=== PATIENT | female | born 1990 | race American Indian/Alaskan Native ===

== ENCOUNTER 2017-10-25 20:11 | Inpatient (IN) | payer MEDICAID, OTHER ==
[2017-10-25] MEDS ORDERED: LACTATED RINGERS 1,000 ML IV SCH (23:00)
[2017-10-25] MEDS: CYTOTEC VG SCH (23:12)
[2017-10-25 23:39] LABS: Hematocrit 34.1 % (30.3-42.9); Hemoglobin 11.6 gm/dl (10.1-14.3); Mean Corpuscular HGB Conc 34 % (30-34); Mean Corpuscular Hemoglobin 31 pg (28-32); Mean Corpuscular Volume 89 fl (79-97); Platelet Count 243 K/mm3 (140-440); Red Blood Count 3.82 M/mm3 (3.65-5.03); White Blood Count 8.6 K/mm3 (4.5-11.0)
[2017-10-26] MEDS: CYTOTEC VG SCH (03:00)
[2017-10-26] MEDS ORDERED: PHENERGAN PO PRN (06:10)
[2017-10-26] MEDS ORDERED: NARCAN 0.4 MG/1 ML IV PRN (06:10)
[2017-10-26] MEDS ORDERED: XYLOCAINE 2% INFILTRATI ONE (06:10)
[2017-10-26] MEDS ORDERED: BRETHINE IVP PRN (06:10)
[2017-10-26] MEDS ORDERED: BRETHINE SUB-Q PRN (06:10)
[2017-10-26] MEDS ORDERED: ePHEDrine SULFATE IV PRN (06:10)
[2017-10-26] MEDS ORDERED: MINERAL OIL PO PRN (06:10)
--- NOTE | 2017-10-26 06:19 | History and Physical Report ---
History of Present Illness Date of examination: 10/26/17 Date of admission: 10/25/17 20:11 Chief complaint: induction of labor History of present illness: This is a 26 yo at 41 weeks admitted to labor and delivery for induction for post due dates. She is a patient of [facility] since 29 weeks transfer in. She is sickle cell trait Positive. EDC 10/14/17. Past History Past Medical History: no pertinent history Past Surgical History: no surgical history Social history: no significant social history, . denies: smoking, alcohol abuse, prescription drug abuse - Obstetrical History Expected Date of Delivery: 10/14/17 Actual Gestation: 41 Week(s) 5 Day(s) : 1 Para: 0 Hx # Term Pregnancies: 0 Number of Pregnancies: 0 Spontaneous Abortions: 0 Induced : 0 Number of Living Children: 0 Medications and Allergies Allergies Allergy/AdvReac Type Severity Reaction Status Date / Time No Known Allergies Allergy Verified 10/25/17 22:30 Active Meds: Active Medications Butorphanol Tartrate (Stadol) 2 mg IV Q2H PRN PRN Reason: Labor Pain Fentanyl (Sublimaze) 100 mcg IV Q2H PRN PRN Reason: Pain Lactated Ringer's (Lactated Ringers) 1,000 mls @ 125 mls/hr IV DIRECT [facility] Last Admin: 10/25/17 23:12 Dose: 125 mls/hr Misoprostol (Cytotec) 25 mcg VG Q4H [facility] Last Admin: 10/26/17 03:00 Dose: 25 mcg Review of Systems All systems: negative - Vital Signs Vital signs: Vital Signs Pulse BP 81 111/66 10/25/17 21:00 10/25/17 21:00 Temp Pulse Resp BP Pulse Ox 98.8 F 60 124/66 10/26/17 01:21 10/26/17 02:29 10/26/17 02:29 - Physical Exam Breasts: Positive: normal Cardiovascular: Regular rate, Normal S1 Lungs: Positive: Clear to auscultation, Normal air movement Abdomen: Positive: normal appearance, soft, normal bowel sounds. Negative: distention, tenderness Genitourinary (Female): Positive: normal external genitalia, normal perenium Vulva: both: normal Vagina: Positive: normal moisture Uterus: Positive: normal size, normal contour Extremities: Positive: normal Deep Tendon Reflex Grade: Normal +2 - Obstetrical FHR: category 1 Cervical Dilatation: 0.5 Uterine Contraction Pattern: Irregular Uterine Contraction Intensity: Mild Results Result Diagrams: 10/25/17 21:40 All other labs normal. Assessment and Plan A/P HD#2 for IOL at post dates at 41+5 weeks admitted with cytotec for cervical ripening labs initiated and IVF reviewed records expect vaginal delivery
[2017-10-26] MEDS: LACTATED RINGERS 1,000 ML IV SCH (06:41)
[2017-10-26] MEDS ORDERED: PITOCin/NS 30 UNIT/500ML 30 UNITS/500 ML BAG IV SCH (07:00)
[2017-10-26] MEDS ORDERED: PITOCin/NS 20 UNIT/1000ML DRIP 20 UNITS/1,000 ML BAG IV SCH (07:00)
--- NOTE | 2017-10-26 07:54 | Progress Note ---
Assessment and Plan A: IUP at 41+ weeks gestation Induction of labor P: Received 2 doses of Cytotec since admit AM care Cytotec 50mcg PV @ 0900 every 4 hrs Subjective - Subjective Date of service: 10/26/17 Patient reports: movement normal, contractions, no new complaints, no loss of fluid, no vaginal bleeding Objective - Vital Signs Vital Signs: Vital Signs - 12hr 10/25/17 10/25/17 10/26/17 21:00 21:01 01:21 Temperature 98.8 F Pulse Rate 81 81 Blood Pressure 111/66 Blood Pressure 111/66 [Left] 10/26/17 02:29 Temperature Pulse Rate 60 Blood Pressure 124/66 Blood Pressure [Left] - Exam Breasts: deferred Abdomen: Present: normal appearance FHR: category 1 Uterine Contraction Monitor Mode: External Uterine Contraction Pattern: Irregular Uterine Tone Measurement Phase: Resting - Labs Labs: Laboratory Results - last 24 hr 10/25/17 10/25/17 21:40 21:40 WBC 8.6 RBC 3.82 Hgb 11.6 Hct 34.1 MCV 89 MCH 31 MCHC 34 RDW 15.0 Plt Count 243 Blood Type B POSITIVE Antibody Screen Negative
[2017-10-26] MEDS ORDERED: CYTOTEC VG SCH (09:00)
[2017-10-26] MEDS: STADOL IV PRN ×2 (16:16→22:00)
[2017-10-26] MEDS: PITOCin/NS 30 UNIT/500ML 30 UNITS/500 ML BAG IV SCH ×2 (19:25→20:30)
[2017-10-26] MEDS: SUBLIMAZE IV PRN (19:26)
[2017-10-27] MEDS: SUBLIMAZE IV PRN ×2 (00:30→05:20)
[2017-10-27] MEDS: LACTATED RINGERS 1,000 ML IV SCH ×3 (01:57→08:44)
[2017-10-27] MEDS: STADOL IV PRN (02:34)
[2017-10-27] MEDS ORDERED: PITOCin/NS 30 UNIT/500ML 30 UNITS/500 ML BAG IV SCH (05:39)
[2017-10-27] MEDS ORDERED: NARCAN 2 MG/2 ML IV PRN (08:48)
[2017-10-27] MEDS ORDERED: ePHEDrine SULFATE IV PRN (08:48)
--- NOTE | 2017-10-27 08:48 | Anesthesia Consultation ---
Anesthesia Consult and Med Hx Date of service: 10/27/17 - Airway Anesthetic Teeth Evaluation: Good ROM Head & Neck: Adequate Mental/Hyoid Distance: Adequate Mallampati Class: Class II Intubation Access Assessment: Probably Good - Pre-Operative Health Status ASA Pre-Surgery Classification: ASA2 Proposed Anesthetic Plan: Epidural, Spinal - Pulmonary Hx Asthma: No COPD: No Hx Pneumonia: No - Cardiovascular System Hx Hypertension: No - Central Nervous System Hx Seizures: No Hx Psychiatric Problems: No - Endocrine Hx Renal Disease: No Hx End Stage Renal Disease: No Hx Hypothyroidism: No Hx Hyperthyroidism: No - Hematic Hx Anemia: No Hx Sickle Cell Disease: No (Hx of Trait) - Other Systems Hx Alcohol Use: No
[2017-10-27] MEDS ORDERED: fentaNYL-BUPIV 2 MCG/ML-0.125% 200 MCG/100 ML BAG EPIDURAL SCH (09:00)
--- NOTE | 2017-10-27 09:01 | Progress Note ---
Assessment and Plan A: IUP at 41+ weeks Active Labor Prolonged Rupture of Membranes P: IUPC placed Close observation of tracing Antibiotics as ordered Subjective - Subjective Date of service: 10/27/17 Patient reports: new complaints (Pain with contractions), movement normal , contractions, no loss of fluid, no vaginal bleeding Objective - Vital Signs Vital Signs: Vital Signs - 12hr 10/27/17 10/27/17 10/27/17 00:34 00:38 00:41 Temperature 98.5 F Pulse Rate 51 L 51 L 57 L Respiratory 18 Rate Blood Pressure 127/73 Blood Pressure 126/73 [Left] O2 Sat by Pulse 98 Oximetry 10/27/17 10/27/17 10/27/17 00:46 00:51 00:56 Temperature Pulse Rate 52 L 54 L 53 L Respiratory Rate Blood Pressure Blood Pressure [Left] O2 Sat by Pulse 98 96 96 Oximetry 10/27/17 10/27/17 10/27/17 01:01 01:06 01:11 Temperature Pulse Rate 53 L 59 L 50 L Respiratory Rate Blood Pressure Blood Pressure [Left] O2 Sat by Pulse 96 96 97 Oximetry 10/27/17 10/27/17 10/27/17 01:16 01:21 01:26 Temperature Pulse Rate 51 L 50 L 48 L Respiratory Rate Blood Pressure Blood Pressure [Left] O2 Sat by Pulse 97 97 98 Oximetry 10/27/17 10/27/17 10/27/17 01:31 01:36 01:41 Temperature Pulse Rate 49 L 53 L 50 L Respiratory Rate Blood Pressure Blood Pressure [Left] O2 Sat by Pulse 99 98 99 Oximetry 10/27/17 10/27/17 10/27/17 01:46 01:50 01:58 Temperature Pulse Rate 50 L 78 Respiratory Rate Blood Pressure Blood Pressure [Left] O2 Sat by Pulse 98 93 86 Oximetry 10/27/17 10/27/17 10/27/17 02:01 02:06 02:11 Temperature Pulse Rate 51 L 54 L 49 L Respiratory Rate Blood Pressure Blood Pressure [Left] O2 Sat by Pulse 100 98 98 Oximetry 10/27/17 10/27/17 10/27/17 02:16 02:23 02:34 Temperature Pulse Rate 50 L Respiratory Rate Blood Pressure Blood Pressure [Left] O2 Sat by Pulse 97 75 L 91 Oximetry 10/27/17 10/27/17 10/27/17 02:38 02:40 02:45 Temperature 98.3 F Pulse Rate 52 L 54 L Respiratory Rate Blood Pressure Blood Pressure [Left] O2 Sat by Pulse 98 97 Oximetry 10/27/17 10/27/17 10/27/17 02:50 02:55 03:00 Temperature Pulse Rate 50 L 55 L 52 L Respiratory Rate Blood Pressure Blood Pressure [Left] O2 Sat by Pulse 96 94 95 Oximetry 10/27/17 10/27/17 10/27/17 03:05 03:10 03:15 Temperature Pulse Rate 50 L 57 L 52 L Respiratory Rate Blood Pressure Blood Pressure [Left] O2 Sat by Pulse 95 98 97 Oximetry 10/27/17 10/27/17 10/27/17 03:20 03:25 03:30 Temperature Pulse Rate 53 L 48 L 53 L Respiratory Rate Blood Pressure Blood Pressure [Left] O2 Sat by Pulse 95 95 95 Oximetry 10/27/17 10/27/17 10/27/17 03:35 03:40 03:45 Temperature Pulse Rate 51 L 50 L 49 L Respiratory Rate Blood Pressure Blood Pressure [Left] O2 Sat by Pulse 96 96 97 Oximetry 10/27/17 10/27/17 10/27/17 03:50 03:55 04:00 Temperature Pulse Rate 52 L 53 L 49 L Respiratory Rate Blood Pressure Blood Pressure [Left] O2 Sat by Pulse 98 99 97 Oximetry 10/27/17 10/27/17 10/27/17 04:05 04:10 04:15 Temperature Pulse Rate 59 L 48 L 50 L Respiratory Rate Blood Pressure Blood Pressure [Left] O2 Sat by Pulse 98 97 98 Oximetry 10/27/17 10/27/17 10/27/17 04:20 04:25 04:30 Temperature Pulse Rate 49 L 48 L 70 Respiratory Rate Blood Pressure Blood Pressure [Left] O2 Sat by Pulse 97 97 98 Oximetry 10/27/17 10/27/17 10/27/17 04:35 04:40 04:51 Temperature Pulse Rate 49 L 48 L 59 L Respiratory Rate Blood Pressure Blood Pressure [Left] O2 Sat by Pulse 97 97 89 Oximetry 10/27/17 10/27/17 10/27/17 04:56 05:01 05:06 Temperature Pulse Rate 56 L 55 L 52 L Respiratory Rate Blood Pressure Blood Pressure [Left] O2 Sat by Pulse 94 99 96 Oximetry 10/27/17 10/27/17 10/27/17 05:11 05:16 05:24 Temperature 98.2 F Pulse Rate 52 L 58 L 51 L Respiratory 18 Rate Blood Pressure Blood Pressure 116/72 [Left] O2 Sat by Pulse 97 98 Oximetry 10/27/17 10/27/17 10/27/17 05:29 08:21 08:23 Temperature 99.2 F Pulse Rate 51 L 64 Respiratory 18 Rate Blood Pressure 116/72 Blood Pressure [Left] O2 Sat by Pulse 81 L Oximetry 10/27/17 10/27/17 10/27/17 08:26 08:31 08:35 Temperature Pulse Rate 56 L 55 L 56 L Respiratory Rate Blood Pressure 129/82 Blood Pressure [Left] O2 Sat by Pulse 100 99 Oximetry 10/27/17 10/27/17 10/27/17 08:36 08:37 08:39 Temperature Pulse Rate 67 57 L 52 L Respiratory Rate Blood Pressure 156/72 129/75 Blood Pressure [Left] O2 Sat by Pulse 99 Oximetry 10/27/17 10/27/17 10/27/17 08:41 08:44 08:45 Temperature Pulse Rate 57 L 57 L 51 L Respiratory Rate Blood Pressure 134/76 145/63 124/72 Blood Pressure [Left] O2 Sat by Pulse 98 Oximetry 10/27/17 10/27/17 10/27/17 08:46 08:47 08:49 Temperature Pulse Rate 52 L 50 L 55 L Respiratory Rate Blood Pressure 122/67 123/69 Blood Pressure [Left] O2 Sat by Pulse 96 Oximetry 10/27/17 10/27/17 10/27/17 08:51 08:52 08:55 Temperature Pulse Rate 63 63 56 L Respiratory Rate Blood Pressure 130/72 Blood Pressure [Left] O2 Sat by Pulse 97 88 Oximetry 10/27/17 08:56 Temperature Pulse Rate 56 L Respiratory Rate Blood Pressure Blood Pressure [Left] O2 Sat by Pulse 99 Oximetry - Exam Breasts: deferred Abdomen: Present: normal appearance Uterus: Present: normal FHR: category 2 FHR comments: 120 mod variability late decel x 2 with contractions Uterine Contraction Monitor Mode: External Cervical Dilatation: 4.5 Cervical Effacement Percentage: 90 station: -3 Uterine Contraction Frequency (min): 2-3 Uterine Contraction Duration: 60-80 Uterine Contraction Pattern: Regular Uterine Tone Measurement Phase: Resting Uterine Contraction Intensity: Strong/Firm - Labs Labs: Laboratory Results - last 24 hr 10/25/17 21:40 RPR Nonreactive
[2017-10-27] MEDS ORDERED: POLYCILLIN/NS 2 GM/100 ML 2 GM/100 ML BAG IV ONE (10:00)
[2017-10-27] MEDS: PITOCin/NS 30 UNIT/500ML 30 UNITS/500 ML BAG IV SCH ×3 (10:04→11:19)
[2017-10-27] MEDS ORDERED: BICITRA ONE (11:14)
[2017-10-27] MEDS ORDERED: REGLAN ONE (11:14)
[2017-10-27] MEDS ORDERED: PEPCID IV ONE (11:15)
[2017-10-27] MEDS ORDERED: ANCEF/STERILE WATER 2 GM/20 ML 2 GM/20 ML SYRINGE IV ONE (11:15)
[2017-10-27] MEDS ORDERED: BICITRA PO SCH (11:57)
[2017-10-27] MEDS ORDERED: REGLAN IV SCH (11:57)
[2017-10-27] MEDS ORDERED: PEPCID IV SCH (11:57)
[2017-10-27] MEDS ORDERED: LACTATED RINGERS 1,000 ML IV SCH (12:00)
[2017-10-27] MEDS ORDERED: ANCEF/STERILE WATER 2 GM/20 ML 2 GM/20 ML SYRINGE IV NR (12:00)
--- NOTE | 2017-10-27 12:11 | Event Note ---
Date: 10/27/17 Pt now with repetitive late decelerations. Cervix: /-3. Proceed with the primary section and other indicated procedures.
[2017-10-27] MEDS ORDERED: PITOCin/NS 20 UNIT/1000ML DRIP 20 UNITS/1,000 ML BAG IV SCH ×2 (12:18→15:59)
[2017-10-27] MEDS ORDERED: XYLOCAINE MPF 2% ONE (12:22)
[2017-10-27] MEDS ORDERED: NACL 0.9% IR ONE (12:25)
[2017-10-27] MEDS ORDERED: WATER FOR IRRIG STERILE IR ONE (12:25)
[2017-10-27] MEDS ORDERED: METHERGINE IM ONE (12:35)
[2017-10-27] MEDS ORDERED: NACL 0.9% 1000 ML 1,000 ML ONE (12:51)
[2017-10-27] MEDS ORDERED: NEO SYNEPHRINE/NS Syringe(OR USE) IV ONE (13:02)
[2017-10-27] MEDS ORDERED: MORPHINE ONE ×2 (13:04)
[2017-10-27] MEDS ORDERED: POLYCILLIN/NS 1 GM/50 ML 1 GM/50 ML BAG IV SCH (14:00)
--- NOTE | 2017-10-27 14:05 | Operative Report ---
Operative Report Operative Report: Date of procedure: October 27, 2017 Preoperative diagnosis: 1) IUP at 41w6d 2) Nonreassuing status 3) Obesity Postoperative diagnosis: Same 4) Occiput Posterior presentation Procedure: Primary low transverse section Surgeon: María Gilbert M.D. Anesthesia: Epidural Findings: 1) Viable female , Apgars 8 and 9, weight 2979g, (6 lb 9 oz) in OP presenation. Nuchal cord x 3 2) Normal-appearing uterus ovaries and tubes Estimated blood loss: 1000 mL IV fluids: 1500 mL Urine output: 150 mL, clear at the end of the procedure Drains: Johnson to gravity Specimens: None Complications: None. Counts correct x 3 Disposition: Stable to PACU Indication for procedure: Pt is a 26 year old -[place] female primigravida at 41w6d who was admitted for induction of labor and progressed to 6 cm but began having repetitive late decelerations remote from delivery. The decision was made to proceed with delivery. Operation in detail: After the risks, benefits, alternatives and complications were explained to the patient she gave informed consent for the procedure. She was subsequently taken to the operating room where epidural anesthesia was noted to be adequate. She was subsequently placed in the dorsal supine position with leftward tilt and prepped and draped in a normal sterile fashion. heart tones were noted prior to incision. A timeout was performed. A Pfannenstiel skin incision was made with the knife and carried down to the layer of the fascia with the Bovie. The fascia was incised in the midline and the fascial incision was extended bilaterally with the Bovie. Attention was then turned to the superior aspect of the incision which was grasped with two Kochers, tented up, and dissected off the rectus muscles. Attention was then turned to the inferior aspect of the incision which was grasped with two Kochers , tented up and dissected off the rectus muscles. The rectus muscles were then in the midline. The peritoneum was then entered bluntly. The peritoneal incision was extended with good visualization of the bladder. The peritoneal incision was then stretched. An Clemente self-retaining retractor was placed for visualization. The bladder blade was placed. The vesicouterine peritoneum was grasped with smooth pickups and incised with Metzenbaum scissors. Metzenbaum scissors were used to extend the incision bilaterally. The bladder flap was then created digitally and the bladder blade was replaced. A transverse incision was made in the lower uterine segment with a knife and extended bilaterally with the bandage scissors. The head was delivered without difficulty followed by shoulders and body. was bulb suctioned at delivery. The cord was clamped and cut and the was handed to NICU staff in attendance. Cord blood was collected. The placenta was then delivered manually. The uterus was then cleared of all clots and debris. The hysterotomy was then reapproximated with 0 Vicryl in a running locked fashion. A second layer of the same suture was used in imbricating fashion. The hysterotomy was inspected and hemostasis was noted. The Clemente self-retaining retractor was removed. The gutters were irrigated and cleared of all clots and debris. The hysterotomy was again inspected and noted to be hemostatic. Surgicel was placed over the hysterotomy. The peritoneum and rectus muscles were then reapproximated with 2-0 Vicryl in a running fashion and covered with Surgicel. The fascia was reapproximated with 0 Vicryl in a running fashion. The skin was reapproximated with 4-0 Vicryl in a subcuticular fashion. The incision was then covered with steri strips and a pressure dressing. The procedure was then ended. The patient tolerated the procedure well and was taken to the PACU in stable condition. All instrument, lap, and needle counts were correct 3.
--- NOTE | 2017-10-27 14:05 | Procedure Note ---
OB Delivery Note - Delivery Date of Delivery: 10/27/17 Surgeon: SIDDHARTHA MENDOSA Estimated blood loss: 1000cc - Section Preop diagnosis: nonreassuring FHR tracing Postop diagnosis: same section procedure: section, primary low transverse Disposition: PACU Narrative: Please see delivery note. - A at 1 minute: 8 at 5 minutes: 9 Infant Gender: Female (2979g (6lb 9 oz) @ 1241 pm)
[2017-10-27] MEDS ORDERED: TUCKS PAD TP PRN (15:59)
[2017-10-27] MEDS ORDERED: MILK OF MAGNESIA PO PRN (15:59)
[2017-10-27] MEDS ORDERED: LANSINOH TP PRN (15:59)
[2017-10-27] MEDS ORDERED: ZOFRAN IV PRN (15:59)
[2017-10-27] MEDS ORDERED: TORADOL IV PRN (15:59)
[2017-10-27] MEDS ORDERED: MORPHINE IV PRN (15:59)
[2017-10-27] MEDS ORDERED: SODIUM CHLORIDE FLUSH SYRINGE 10 ML IV SCH (15:59)
[2017-10-27] MEDS ORDERED: NARCAN 0.4 MG/1 ML IV PRN (15:59)
[2017-10-27] MEDS ORDERED: MYLICON PO PRN (15:59)
[2017-10-27] MEDS ORDERED: D5LR 1,000 ML IV SCH (17:00)
[2017-10-27] MEDS ORDERED: cefTRIAXone 1 GM in NACL 0.9% 20 ML IV SCH (20:00)
[2017-10-27] MEDS ORDERED: ANCEF/NS 1 GM/50 ML 1 GM/50 ML BAG IV SCH (20:00)
[2017-10-27] MEDS: ceFAZolin 1 GM in NACL 0.9% 20 ML IV SCH (21:47)
[2017-10-28] MEDS: ceFAZolin 1 GM in NACL 0.9% 20 ML IV SCH (05:38)
[2017-10-28 05:46] LABS: Hematocrit 30.6 % (30.3-42.9); Hemoglobin 10.3 gm/dl (10.1-14.3)
[2017-10-28] MEDS ORDERED: BOOSTRIX IM ONE (06:00)
[2017-10-28] MEDS: PERCOCET 5/325 PO PRN ×2 (06:39→17:26)
[2017-10-28] MEDS: MOTRIN PO PRN ×2 (06:39→17:25)
--- NOTE | 2017-10-28 08:41 | Progress Note ---
Assessment and Plan O: VSS AF PP H/H: 10.3/30.6 A: Stable POD #1 Anemia P: [place] Subjective - Subjective Date of service: 10/28/17 Patient reports: appetite normal (Tolerating CL diet w/o N/V), voiding normally , pain well controlled, ambulating normally, no flatus : doing well Objective - Vital Signs Latest vital signs: Vital Signs Temp Pulse Resp BP BP Pulse Ox 10/28/17 04:35 62 20 130/68 98 10/28/17 00:45 98.3 F 65 20 125/69 96 10/27/17 20:30 98.1 F 60 20 127/67 97 10/27/17 15:00 99 F 58 L 20 124/65 10/27/17 14:42 17 124/68 98 10/27/17 14:25 53 L 19 120/72 99 10/27/17 14:10 57 L 17 128/74 98 10/27/17 14:05 56 L 16 121/74 100 10/27/17 14:02 98.2 F 69 16 116/62 100 10/27/17 13:55 56 L 16 120/66 100 10/27/17 12:16 102 H 89 10/27/17 12:15 53 L 125/62 10/27/17 12:11 66 100 10/27/17 12:06 59 L 100 10/27/17 12:01 55 L 118/56 100 10/27/17 11:56 60 112/57 64 L 10/27/17 11:53 58 L 82 L 10/27/17 11:51 54 L 100 10/27/17 11:49 51 L 132/72 10/27/17 11:46 59 L 98 10/27/17 11:45 54 L 133/72 10/27/17 11:41 52 L 100 10/27/17 11:40 51 L 126/71 10/27/17 11:36 56 L 100 10/27/17 11:35 52 L 111/69 10/27/17 11:31 48 L 100 10/27/17 11:29 50 L 124/71 10/27/17 11:26 52 L 100 10/27/17 11:25 50 L 126/72 10/27/17 11:21 50 L 124/69 100 10/27/17 11:16 59 L 99 10/27/17 11:14 53 L 117/65 10/27/17 11:11 53 L 100 10/27/17 11:09 50 L 113/63 10/27/17 11:06 48 L 100 10/27/17 11:04 46 L 109/60 10/27/17 11:01 48 L 100 10/27/17 11:00 50 L 109/59 10/27/17 10:56 49 L 100 10/27/17 10:54 50 L 110/62 10/27/17 10:51 49 L 100 10/27/17 10:49 50 L 110/64 10/27/17 10:46 52 L 100 10/27/17 10:44 49 L 109/63 10/27/17 10:41 52 L 100 10/27/17 10:39 58 L 104/57 10/27/17 10:36 51 L 100 10/27/17 10:35 54 L 116/59 10/27/17 10:31 50 L 100 10/27/17 10:30 53 L 113/60 10/27/17 10:26 52 L 100 10/27/17 10:25 51 L 115/68 10/27/17 10:21 51 L 100 10/27/17 10:20 50 L 124/70 10/27/17 10:16 50 L 98 10/27/17 10:14 52 L 117/73 10/27/17 10:11 59 L 98 10/27/17 10:09 54 L 124/74 10/27/17 10:06 54 L 100 10/27/17 10:05 53 L 122/73 10/27/17 10:01 54 L 100 10/27/17 10:00 54 L 130/72 10/27/17 09:56 57 L 100 10/27/17 09:55 56 L 131/71 80 L 10/27/17 09:51 54 L 99 10/27/17 09:46 63 100 10/27/17 09:45 56 L 151/82 10/27/17 09:41 65 96 10/27/17 09:39 55 L 146/83 10/27/17 09:36 58 L 100 10/27/17 09:35 56 L 139/77 10/27/17 09:31 56 L 100 10/27/17 09:29 54 L 140/76 10/27/17 09:26 62 99 10/27/17 09:23 49 L 77 L 10/27/17 09:21 65 100 10/27/17 09:19 55 L 144/80 10/27/17 09:16 57 L 99 10/27/17 09:14 52 L 139/71 10/27/17 09:11 53 L 100 10/27/17 09:10 53 L 142/85 10/27/17 09:06 53 L 100 10/27/17 09:04 51 L 130/78 10/27/17 09:03 52 L 133/81 10/27/17 09:01 54 L 100 10/27/17 08:59 54 L 128/72 10/27/17 08:56 56 L 99 10/27/17 08:55 56 L 130/72 10/27/17 08:52 63 88 10/27/17 08:51 63 97 10/27/17 08:49 55 L 123/69 10/27/17 08:47 50 L 122/67 10/27/17 08:46 52 L 96 10/27/17 08:45 51 L 124/72 10/27/17 08:44 57 L 145/63 10/27/17 08:41 57 L 134/76 98 Intake and Output 10/27/17 10/28/17 10/28/17 22:59 06:59 14:59 Intake Total 365 1120 Output Total 600 1200 Balance -235 -80 Intake: IV 125 1000 D5lr 1,000 ml @ 125 mls/ 1000 hr IV DIRECT JESICA Rx#: [id number] Right Wrist 125 Oral 240 120 Output: Urine 600 1200 Indwelling Catheter 600 1200 Other: Total, Intake Amount 120 120 Total, Output Amount 600 1200 - Exam Breasts: Present: deferred Abdomen: Present: normal appearance, soft, normal bowel sounds. Absent: distention, tenderness Vulva: both: normal Uterus: Present: normal, firm, fundal height below umbilicus (2 below U, ML). Absent: bogginess, tenderness Extremities: Present: normal. Absent: edema Incision: Present: normal, dry, intact, dressed
[2017-10-28] MEDS ORDERED: PRENATAL VITAMIN PO SCH (10:00)
[2017-10-28] MEDS ORDERED: FEOSOL PO SCH (10:00)
[2017-10-28] MEDS ORDERED: M-M-R II VACCINE SUB-Q ONE (14:07)
--- NOTE | 2017-10-29 07:02 | Progress Note ---
Assessment and Plan O: VSS AF PP H/H: 10.3/30.6 A: Stable POD #2 AnemiA P: D/c home Subjective - Subjective Date of service: 10/29/17 Patient reports: appetite normal, voiding normally, pain well controlled, flatus , ambulating normally : doing well, nursing well, other (infant going under bililight this am) Objective - Vital Signs Latest vital signs: Vital Signs Temp Pulse Resp BP 10/29/17 00:00 98.0 F 78 20 122/73 10/28/17 18:00 98.2 F 86 20 126/82 10/28/17 13:10 98.2 F 85 20 118/79 10/28/17 08:15 98.6 F 86 20 106/78 Intake and Output 10/28/17 10/29/17 10/29/17 22:59 06:59 14:59 Intake Total 480 Balance 480 Intake: Oral 480 Other: Total, Intake Amount 120 # Voids Void 1 1 - Exam Breasts: Present: deferred Lungs: Present: Normal air movement Abdomen: Present: normal appearance, soft, normal bowel sounds. Absent: distention, tenderness Vulva: both: normal Uterus: Present: normal, firm, fundal height below umbilicus. Absent: bogginess , tenderness Extremities: Present: normal Incision: Present: normal, dry, intact, other (steri strips present and patent)
--- NOTE | 2017-10-29 07:04 | Discharge Summary ---
Providers - Providers Date of Admission: 10/25/17 20:11 Date of discharge: 10/29/17 Attending physician: МАРИЯ RIVERA MD 10/27/17 15:59 Consult to Teletype Clerk [CONS] Routine Reason For Exam: Primary care physician: МАРИЯ RIVERA MD Hospitalization Reason for admission: induction of labor, IUP at term Delivery: Procedure: primary low transverse Episiotomy: none Laceration: none Incision: normal, dry, intact Other procedures: none complications: none Discharge diagnosis: IUP at term delivered [place] baby: female Condition at discharge: Good Disposition: DC-01 TO HOME OR SELFCARE Plan - Discharge Medications Prescriptions: Ibuprofen [Motrin] 800 mg PO Q8HR PRN #30 tablet PRN Reason: Pain oxyCODONE /ACETAMINOPHEN [Percocet 5/325] 1 tab PO Q6HR PRN #40 tablet PRN Reason: Pain - Provider Discharge Summary Activity: routine, no sex for 6 weeks, no heavy lifting 4 weeks, no strenuous exercise Diet: routine Instructions: routine Additional instructions: [] Smoking cessation referral if applicable(refer to patient education folder for contact #) [] Refer to [facility]'s [facility] Booklet Call your doctor immediately for: * Fever > 100.5 * Heavy vaginal bleeding ( >1 pad per hour) * Severe persistent headache * Shortness of breath * Reddened, hot, painful area to leg or breast * Drainage or odor from incision. * Keep incision clean and dry at all times and follow doctor's instructions regarding bathing/showering - Follow up plan Follow up: МАРИЯ RIVERA MD [Primary Care Provider] - SIDDHARTHA MENDOSA MD [Staff Physician] - 14 Days (RTO for incision check 2 weeks)
[2017-10-29 18:33] VITALS: BP 111/77
== END 2017-10-29 17:35 | disposition home or self-care (01) | DRG 766 ==
LOC: LD 20:11 → OB 10-27 15:47
PROVIDERS: ADMIT Obstetrics & Gynecology; ATTEND Obstetrics & Gynecology
PROC: 10D00Z1 Extraction of Products of Conception, Low, Open Approach (ICD-10-PCS; principal; 2017-10-27)
PROC: 3E0234Z Introduction of Serum, Toxoid and Vaccine into Muscle, Percutaneous Approach (ICD-10-PCS; 2017-10-28)
DX: O48.0 Post-term pregnancy (principal); O76 Abnormality in fetal heart rate and rhythm complicating labor and delivery; O64.0XX0 Obstructed labor due to incomplete rotation of fetal head, not applicable or unspecified; O69.81X0 Labor and delivery complicated by cord around neck, without compression, not applicable or unspecified; O75.0 Maternal distress during labor and delivery; D57.3 Sickle-cell trait; O90.81 Anemia of the puerperium; D64.9 Anemia, unspecified; E66.9 Obesity, unspecified; Z3A.41 41 weeks gestation of pregnancy; Z68.33 Body mass index [BMI] 33.0-33.9, adult; Z23 Encounter for immunization; Z37.0 Single live birth
CPT/HCPCS: 36415; 85014; 85018; 85027; 86592; 86850; 86900; 86901; 99211; A6250; G0463; J0290; J0595; J0690; J0696; J1885; J2210; J2270; J2370; J2590; J2765; J3010; J7030; J7120; J7121

== ENCOUNTER 2017-11-06 12:41 | Emergency (ER) | payer MEDICAID ==
[2017-11-06 13:01] VITALS: BP 134/66
[2017-11-06 13:22] LABS: Basophils % (Auto) 0.5 % (0.0-1.8); Eosinophils % (Auto) 0.8 % (0.0-4.3); Hematocrit 33.1 % (30.3-42.9); Hemoglobin 11.2 gm/dl (10.1-14.3); Mean Corpuscular HGB Conc 34 % (30-34); Mean Corpuscular Hemoglobin 31 pg (28-32); Mean Corpuscular Volume 91 fl (79-97); Platelet Count 374 K/mm3 (140-440); Red Blood Count 3.63 M/mm3 (3.65-5.03); Red Cell Distribution Width 15.5 % (13.2-15.2); White Blood Count 5.8 K/mm3 (4.5-11.0)
[2017-11-06 13:38] LABS: Anion Gap 18 mmol/L; BUN/Creatinine Ratio 10; Blood Urea Nitrogen 5 mg/dL (7-17); Calcium 8.8 mg/dL (8.4-10.2); Carbon Dioxide 23 mmol/L (22-30); Glucose 102 mg/dL (65-100); Potassium 3.5 mmol/L (3.6-5.0); Sodium 140 mmol/L (137-145)
== END 2017-11-06 14:36 | disposition left against medical advice (07) ==
LOC: ED 12:41
DX: Z53.21 Procedure and treatment not carried out due to patient leaving prior to being seen by health care provider (principal)
CPT/HCPCS: 36415; 80048; 85025